=== PATIENT | female | born 1955 | race Caucasian/White ===

== ENCOUNTER 2022-05-02 08:16 | Outpatient (CLI) | payer MEDICARE, BC, SELFPAY | END 2022-05-02 08:17 | disposition home or self-care (01) | LOC: NFLDREF 05-06 09:55 | PROVIDERS: PCP Internal Medicine; Referring Provider Internal Medicine; Visit Provider Internal Medicine | DX: Z00.00 Encounter for general adult medical examination without abnormal findings (principal); R73.03 Prediabetes; M81.0 Age-related osteoporosis without current pathological fracture | CPT/HCPCS: 82306; 82947 ==

== ENCOUNTER 2022-07-06 10:00 | Outpatient (RCR) | payer MEDICARE, BC, SELFPAY | END 2022-08-11 09:15 | disposition home or self-care (01) | PROVIDERS: PCP Internal Medicine; Visit Provider Chiropractor | DX: R53.1 Weakness (principal); Z51.89 Encounter for other specified aftercare | CPT/HCPCS: 97110; 97161 ==

== ENCOUNTER 2023-02-14 17:16 | Emergency (ER) | payer MEDICARE, BC, SELFPAY ==
[2023-02-14] VITALS (19 sets, daily range): BP systolic 129–159; BP diastolic 70–83; PULSE 64–77; RESP 22; TEMP 36.6; O2SAT 89–98; BMI 20.5
--- NOTE | 2023-02-14 17:43 | ED_ITS ---
HPI - General Adult General Time Seen by Provider: 17:43 Date Seen: 02/14/23 Chief complaint: Chest Pain Stated complaint: Severe Stomach and back pain Time Seen by Provider: 02/14/23 17:43 Source: patient Mode of arrival: ambulatory Limitations: no limitations History of Present Illness HPI narrative: Krystle is a very pleasant 67-year-old female with diagnosis of RSV earlier today who comes to the emergency room with a sudden onset of epigastric discomfort at approximately 1600 hours. Patient notes that it is severe and radiates into her back. she denies any nausea or vomiting or change in her bowel movements. Robitussin with codeine for her cough earlier today. She notes that she has had pain in the past like this and underwent a treadmill stress test 1 year ago that was normal. She has had a history of a cholecystectomy. She thought that this pain reminded her of gallbladder pain. Position changes do not improved discomfort. Related Data Home Medications Medication Instructions Recorded Confirmed Hertel 2 cap PO DAILY 05/05/22 02/14/23 Previous Rx's Medication Instructions Recorded alendronate 70 mg tablet 70 mg PO QWEEK #12 tabs 05/05/22 albuterol sulfate 90 mcg/actuation 2 puff inhalation Q6H PRN 02/14/23 aerosol inhaler (ProAir HFA) shortness of breath or wheezing #6.7 grams codeine 10 mg-guaifenesin 100 mg/5 10 ml PO Q4H PRN cough #237 mL 02/14/23 mL oral liquid (Guaifenesin AC) Allergies Allergy/AdvReac Type Severity Reaction Status Date / Time bupropion AdvReac Severe Seizure Verified 02/14/23 08:15 metronidazole AdvReac Intermediate Vomiting Verified 02/14/23 08:15 tetracycline AdvReac Intermediate Vomiting Verified 02/14/23 08:15 Review of Systems Status of ROS: Reports: 10 or more systems reviewed and unremarkable except as noted in History and below PFSH [facility] Medical History History of diverticulitis ?Z87.19 - Personal history of other diseases of the digestive system (ICD-10) Surgical History History of oophorectomy History of bilateral salpingectomy ?Z90.79 - Acquired absence of other genital organ(s) (ICD-10) History of varicose vein ligation and stripping ?Z98.890 - Other specified postprocedural states (ICD-10) History of dilation and curettage ?Z98.890 - Other specified postprocedural states (ICD-10) History of cholecystectomy (04/2015) ?Z90.49 - Acquired absence of other specified parts of digestive tract (ICD- 10) History of section ?Z98.891 - History of uterine scar from previous surgery (ICD-10) Social History Smoking Status: Former smoker Do you use any of these nicotine containing products: None Second hand tobacco smoke exposure: No Non-prescribed substance use: denies use Little interest or pleasure in doing things: not at all Feeling down, depressed, or hopeless: not at all service: No Exam Narrative: Exam Narrative: Patient is alert and oriented. She does appear to be in moderate distress. External ears eyes nose clear. Heart with regular rate and rhythm and lungs are clear. Exquisite pain with palpation in the epigastrium. No CVA tenderness with percussion. I do not palpate pulsating mass in the abdomen and pedal pulses are symmetrical. No unusual calf tenderness or edema noted. Const: Vital Signs, click to edit/add: Vital Signs - 24 hr 02/14/23 17:35 02/14/23 17:41 02/14/23 17:42 Temperature 97.9 F Pulse Rate 69 Pulse Rate [Pulse Oximeter] 76 Respiratory Rate 22 Blood Pressure 141/83 H Blood Pressure [Ri ght Upper Arm] 141/83 H Pulse Oximetry 98 98 Oxygen Delivery Me thod Room Air 02/14/23 17:43 02/14/23 17:45 02/14/23 18:00 Temperature Pulse Rate 77 69 73 Pulse Rate [Pulse Oximeter] Respiratory Rate Blood Pressure 159/71 H Blood Pressure [Ri ght Upper Arm] Pulse Oximetry 98 97 97 Oxygen Delivery Me thod 02/14/23 18:16 02/14/23 18:30 02/14/23 18:32 Temperature Pulse Rate 76 76 70 Pulse Rate [Pulse Oximeter] Respiratory Rate Blood Pressure 131/81 Blood Pressure [Ri ght Upper Arm] Pulse Oximetry 92 93 89 Oxygen Delivery Me thod 02/14/23 18:33 02/14/23 19:00 02/14/23 19:02 Temperature Pulse Rate 74 68 68 Pulse Rate [Pulse Oximeter] Respiratory Rate Blood Pressure 129/70 Blood Pressure [Ri ght Upper Arm] Pulse Oximetry 90 90 95 Oxygen Delivery Me thod Room Air 02/14/23 19:30 02/14/23 19:35 02/14/23 20:00 Temperature Pulse Rate 71 69 65 Pulse Rate [Pulse Oximeter] Respiratory Rate Blood Pressure Blood Pressure [Ri ght Upper Arm] Pulse Oximetry 97 94 91 Oxygen Delivery Me thod 02/14/23 20:04 02/14/23 20:30 02/14/23 20:35 Temperature Pulse Rate 65 71 75 Pulse Rate [Pulse Oximeter] Respiratory Rate Blood Pressure Blood Pressure [Ri ght Upper Arm] Pulse Oximetry 91 97 94 Oxygen Delivery Me thod 02/14/23 21:00 Temperature Pulse Rate 64 Pulse Rate [Pulse Oximeter] Respiratory Rate Blood Pressure Blood Pressure [Ri ght Upper Arm] Pulse Oximetry 92 Oxygen Delivery Me thod Documenting provider has reviewed patient's vital signs: yes Course Course ED Course: At this time differential diagnosis includes but is not limited to aortic dissection, pancreatitis, internal hernia, small-bowel obstruction, acute coronary event. Will place IV and give 1 L of normal saline, Zofran 4 mg, morphine 4 mg. Will proceed immediately with chest abdomen and pelvic CT. Will obtain labs to include CBC, comprehensive panel, lactate, lipase, CRP and urinalysis. Reevaluation(s) Reevaluation #1: Patient notes that her pain is down to a 1/10 at this time after morphine. Vital signs are appropriate. Back from CT and awaiting results. Troponin negative and EKG reassuring. Reevaluation #2: Patient continues to feel much better than her arrival. Vital Signs Vital signs: Initial Vital Signs Blood Pressure 141/83 H 02/14/23 17:35 Blood Pressure Mean 102 02/14/23 17:35 Vital Signs Blood Pressure 141/83 H 02/14/23 17:35 Temperature 97.9 F 02/14/23 17:41 Pulse Rate 64 02/14/23 21:00 Respiratory Rate 22 02/14/23 17:41 Blood Pressure 129/70 02/14/23 19:02 Pulse Oximetry 92 02/14/23 21:00 Oxygen Delivery Method Room Air 02/14/23 18:33 Medications Administered Medications: Discontinued Medications Generic Name Dose Route Start Last Admin Trade Name Slhomo PRN Reason Stop Dose Admin Sodium Chloride 1,000 mls @ 1,000 mls/hr 02/14/23 17:51 02/14/23 19:42 0.9 % Sodium Chloride 1000 Ml IV 02/14/23 18:50 Infused .Q1H ROLAND Infusion Morphine Sulfate 4 mg 02/14/23 17:49 02/14/23 18:00 Morphine 4 Mg/Ml Inj IVP 02/14/23 17:50 4 mg ONCE ONE Administration Omeprazole 40 mg 02/14/23 21:07 02/14/23 21:18 Omeprazole [address] PO 02/14/23 21:08 40 mg ONCE ONE Administration Ondansetron HCl 4 mg 02/14/23 17:49 02/14/23 18:00 Ondansetron 2 Mg/Ml Inj IVP 02/14/23 17:50 4 mg ONCE ONE Administration Medical Decision Making [facility] Narrative Medical decision making narrative: 1. Abdominal pain-no evidence of emergent pathology such as an aortic dissection, bowel obstruction or perforated viscus noted on CT. Laboratory values are also reassuring with a white count that is normal. CRP was elevated but I think likely secondary to RSV infection. At this time patient could be experiencing some abdominal colic or perhaps some gastritis. She is a former smoker and does not smoke currently. Alcohol use is occasionally on weekends. I think we will try omeprazole 40 mg daily 1st 2 weeks and then switch to 20 mg daily for 3 months. Patient is not to use alcohol during this time. Recommend increasing foods containing a calcium and magnesium while on omeprazole. Patient should return to the emergency room for worsening symptoms. EKG was reassuring and troponin negative x2. Further she has had previous stress test which was negative. 2. RSV-O2 sats reassuring and no evidence of pneumonia noted on CT. Patient notes that she has had a few mornings where she has woken up and had difficulty breathing. Will provide her with a albuterol inhaler to use as needed. Return to the emergency room for difficulty breathing and worsening symptoms. 3. Disposition-home with . Rest, push fluids, return as needed. Medical Records Medical records reviewed: Yes I reviewed the patient's medical records Lab Data Lab results reviewed: Yes I reviewed the patient's lab results Labs: Lab Results 02/14/23 02/14/23 02/14/23 Range/Units 17:40 17:52 19:25 WBC 5.61 (4.50-11.00) K/uL RBC 4.49 (4.00-5.20) m/uL Hgb 13.8 (12.0-16.0) gm/dL Hct 41.2 (33.0-51.0) % MCV 92 (80-100) fL MCH 31 (26-34) pg MCHC 34 (32-36) gm/dL RDW Coeff of Miranda 12.6 (11.5-15.5) % Plt Count 300 (140-440) K/uL Neut % (Auto) 52.5 (42.0-72.0) % Lymph % (Auto) 37.3 (20-44) % [place] % (Auto) 8.2 (0.0-11.0) % Eos % (Auto) 1.6 (0.0-7.0) % Baso % (Auto) 0.2 (0.0-3.0) % Neut # (Auto) 2.95 (1.7-7.0) K/uL Lymph # (Auto) 2.09 (0.90-2.90) K/uL [place] # (Auto) 0.50 (0.00-0.90) K/UL Eos # (Auto) 0.09 (0.00-0.50) K/uL Baso # (Auto) 0.01 (0.00-0.30) K/uL Abs Immat Gran (auto) 0.01 (0.00-0.30) K/uL Imm/Tot Granulo (auto) 0.2 % Sodium 132 L (135-149) mmol/L Potassium 3.5 L (3.6-5.1) mmol/L Chloride 101 (96-114) mmol/L Carbon Dioxide 23 (20-32) mmol/L Anion Gap 8 (7-15) mEq/L BUN 14 (7-30) mg/dL Creatinine 0.7 (0.5-1.5) mg/dL Estimated Creat Clear 47.42 Estimated GFR 94 ml/min Glucose 143 H (60-115) mg/dL Lactate 1.4 (0.5-1.9) mmol/L Calcium 9.0 (8.4-10.6) mg/dL Total Bilirubin 0.5 (0.1-1.5) mg/dL AST 43 H (12-35) U/L ALT 21 (4-35) U/L Alkaline Phosphatase 75 (40-150) U/L C-Reactive Protein 3.2 H (0.5-1.0) mg/dL Total Protein 7.1 (6.0-8.3) g/dL Albumin 4.4 (3.3-5.0) g/dL Lipase 131 (23-300) U/L Urine Color Yellow (Yellow) Urine Appearance Clear (Clear) Urine pH 5.5 (5.0-8.5) Ur Specific [place] <= 1.005 (1.000-1.030) Urine Protein Negative (Negative) Urine Glucose (UA) Negative (Negative) Urine Ketones Trace A (Negative) Urine Blood Negative (Negative) Urine Nitrite Negative (Negative) Urine Bilirubin Negative (Negative) Urine Urobilinogen 0.2 (0.2-1.0) Ur Leukocyte Esterase Negative (Negative) Urine RBC 0-2 (0-2) Urine WBC 0-2 (0-5) Ur Squamous Epith Cells None (None-Few) Urine Bacteria None (None) POC Troponin I 0.00 L (0.01-0.04) ng/ml 02/14/23 Range/Units 20:22 WBC (4.50-11.00) K/uL RBC (4.00-5.20) m/uL Hgb (12.0-16.0) gm/dL Hct (33.0-51.0) % MCV (80-100) fL MCH (26-34) pg MCHC (32-36) gm/dL RDW Coeff of Miranda (11.5-15.5) % Plt Count (140-440) K/uL Neut % (Auto) (42.0-72.0) % Lymph % (Auto) (20-44) % [place] % (Auto) (0.0-11.0) % Eos % (Auto) (0.0-7.0) % Baso % (Auto) (0.0-3.0) % Neut # (Auto) (1.7-7.0) K/uL Lymph # (Auto) (0.90-2.90) K/uL [place] # (Auto) (0.00-0.90) K/UL Eos # (Auto) (0.00-0.50) K/uL Baso # (Auto) (0.00-0.30) K/uL Abs Immat Gran (auto) (0.00-0.30) K/uL Imm/Tot Granulo (auto) % Sodium (135-149) mmol/L Potassium (3.6-5.1) mmol/L Chloride (96-114) mmol/L Carbon Dioxide (20-32) mmol/L Anion Gap (7-15) mEq/L BUN (7-30) mg/dL Creatinine (0.5-1.5) mg/dL Estimated Creat Clear Estimated GFR ml/min Glucose (60-115) mg/dL Lactate (0.5-1.9) mmol/L Calcium (8.4-10.6) mg/dL Total Bilirubin (0.1-1.5) mg/dL AST (12-35) U/L ALT (4-35) U/L Alkaline Phosphatase (40-150) U/L C-Reactive Protein (0.5-1.0) mg/dL Total Protein (6.0-8.3) g/dL Albumin (3.3-5.0) g/dL Lipase (23-300) U/L Urine Color (Yellow) Urine Appearance (Clear) Urine pH (5.0-8.5) Ur Specific [place] (1.000-1.030) Urine Protein (Negative) Urine Glucose (UA) (Negative) Urine Ketones (Negative) Urine Blood (Negative) Urine Nitrite (Negative) Urine Bilirubin (Negative) Urine Urobilinogen (0.2-1.0) Ur Leukocyte Esterase (Negative) Urine RBC (0-2) Urine WBC (0-5) Ur Squamous Epith Cells (None-Few) Urine Bacteria (None) POC Troponin I 0.00 L (0.01-0.04) ng/ml Imaging Data CT Chest/Ab/Pelvis: Attestation: I have reviewed the pertinent imaging results. Radiologist's impression: Cardiovascular structures: Heart size is normal. Thoracic aorta and main pulmonary artery are normal in caliber. Mediastinum and soni: No mass or adenopathy. Lungs and pleura: Lungs and pleural spaces are clear. No suspicious nodules, infiltrates, or effusions. Chest wall and axilla: No mass or adenopathy. Bones: No suspicious bone lesions. Unremarkable for age. ABDOMEN AND PELVIS: Liver: Unremarkable. Gallbladder and bile ducts: Gallbladder is absent. Mild intra and extrahepatic biliary ductal dilatation. Pancreas: Unremarkable. Spleen: Unremarkable. Adrenal glands: Thickening of the bilateral adrenal glands. Kidneys: Unremarkable. GI tract: Diffuse colonic diverticuli. No evidence of diverticulitis. Vascular structures: Unremarkable. Lymph nodes: Unremarkable. Miscellaneous: Unremarkable. No free air or significant free fluid. Pelvic Organs: Unremarkable. Bones: No suspicious bone lesions. Unremarkable for age. IMPRESSION: No acute cardiopulmonary process identified. No acute intra-abdominal process identified. ECG Data Attestation: I personally reviewed and interpreted this ECG as follows: Interpretation: by my read EKG shows sinus rhythm at a rate of 75. Wondering baseline but I do not note any acute ST or T-wave changes. QT and DC intervals within normal limits. Discharge Plan Discharge Clinical Impression: Respiratory syncytial virus (RSV) infection, Abdominal pain, epigastric Patient Disposition: Home, Self-Care Condition: Improved Additional Instructions: At this time your CT scan is reassuring. What you're experiencing may be related to gastritis or an inflammation of the stomach lining. Your 1st dose of omeprazole was given tonight. I would like you to continue omeprazole 40 mg or 2 tablets every evening for 2 weeks. Thereafter, you may decrease to 1 tablet every evening for the next 3 months. During this time make sure you are getting extra calcium and magnesium in the form of green vegetables. Return to the emergency room for worsening symptoms either with your pain or breathing. An inhaler is available for you through our AF83 machine. Prescriptions: New albuterol sulfate [ProAir HFA] 90 mcg/actuation HFA aerosol inhaler 2 puff inhalation Q6H PRN (Reason: shortness of breath or wheezing) Qty: 6.7 0RF No Action codeine-guaifenesin [Guaifenesin AC] 10-100 mg/5 mL liquid 10 ml PO Q4H PRN (Reason: cough) Qty: 237 1RF Hertel 2 cap PO DAILY alendronate 70 mg tablet 70 mg PO QWEEK Qty: 12 3RF Follow Up/Referrals: Salome Moreland MD [Primary Care Provider] - Stand Alone Forms: [employer] Info Instructions
--- NOTE | 2023-02-14 17:49 | CRLHL7_ITS ---
For Patients: As a result of the Century Cures Act, medical imaging exams and procedure reports are released immediately into your electronic medical record. You may view this report before your referring provider. If you have questions, please contact your health care provider. INDICATION: sudden onset of abdominal pain, radiation to back TECHNIQUE: CT chest, abdomen and pelvis acquired with 58 milliliters of Isovue 370 IV contrast. COMPARISON: None. FINDINGS: CHEST: Cardiovascular structures: Heart size is normal. Thoracic aorta and main pulmonary artery are normal in caliber. Mediastinum and soni: No mass or adenopathy. Lungs and pleura: Lungs and pleural spaces are clear. No suspicious nodules, infiltrates, or effusions. Chest wall and axilla: No mass or adenopathy. Bones: No suspicious bone lesions. Unremarkable for age. ABDOMEN AND PELVIS: Liver: Unremarkable. Gallbladder and bile ducts: Gallbladder is absent. Mild intra and extrahepatic biliary ductal dilatation. Pancreas: Unremarkable. Spleen: Unremarkable. Adrenal glands: Thickening of the bilateral adrenal glands. Kidneys: Unremarkable. GI tract: Diffuse colonic diverticuli. No evidence of diverticulitis. Vascular structures: Unremarkable. Lymph nodes: Unremarkable. Miscellaneous: Unremarkable. No free air or significant free fluid. Pelvic Organs: Unremarkable. Bones: No suspicious bone lesions. Unremarkable for age. IMPRESSION: No acute cardiopulmonary process identified. No acute intra-abdominal process identified. Please note that all CT scans at this facility use dose modulation, iterative reconstruction, and/or weight-based dosing when appropriate to reduce radiation dose to as low as reasonably achievable. Dictated by Emigdio Sofia MD @ 02/14/2023 7:14:39 PM (Electronically Signed)
[2023-02-14] MEDS: MORPHINE 4 MG/ML INJ IVP (18:00)
[2023-02-14] MEDS: ONDANSETRON 2 MG/ML inj 4 MG IVP (18:00)
[2023-02-14 18:10] LABS: Lactate* 1.4 mmol/L (0.5-1.9)
[2023-02-14 18:15] LABS: Basophils Absolute Auto 0.01 K/uL (0.00-0.30); Basophils Percent Auto 0.2 % (0.0-3.0); Eosinophils Absolute Auto 0.09 K/uL (0.00-0.50); Eosinophils Percent Auto 1.6 % (0.0-7.0); Hematocrit 41.2 % (33.0-51.0); Hemoglobin* 13.8 gm/dL (12.0-16.0); Immature Granulocytes Abs Auto 0.01 K/uL (0.00-0.30); Immature Granulocytes Pct Auto 0.2 %; Lymphocytes Absolute Auto 2.09 K/uL (0.90-2.90); Lymphocytes Percent Auto 37.3 % (20-44); Mean Corpuscular HGB Conc 34 gm/dL (32-36); Mean Corpuscular Hemoglobin 31 pg (26-34); Mean Corpuscular Volume 92 fL (80-100); Monocytes Percent Auto 8.2 % (0.0-11.0); Neutrophils Absolute Auto 2.95 K/uL (1.7-7.0); Neutrophils Percent Auto 52.5 % (42.0-72.0); Platelet Count* 300 K/uL (140-440); RDW Coefficient of Variation % 12.6 % (11.5-15.5); Red Blood Count 4.49 m/uL (4.00-5.20); White Blood Count* 5.61 K/uL (4.50-11.00)
[2023-02-14] MEDS: 0.9 % SODIUM CHLORIDE 1000 ml 1,000 ML IV (18:21)
[2023-02-14 18:25] LABS: Slide Review Reflex No
[2023-02-14 18:27] LABS: Chloride* 101 mmol/L (96-114)
[2023-02-14 18:28] LABS: Albumin* 4.4 g/dL (3.3-5.0); Sodium* 132 mmol/L (135-149)
[2023-02-14 18:29] LABS: Potassium* 3.5 mmol/L (3.6-5.1)
[2023-02-14 18:31] LABS: Alkaline Phosphatase* 75 U/L (40-150); Anion Gap 8 mEq/L (7-15); Aspartate Amino Transferase* 43 U/L (12-35); Bilirubin Total* 0.5 mg/dL (0.1-1.5); Carbon Dioxide* 23 mmol/L (20-32); Creatinine* 0.7 mg/dL (0.5-1.5); Est. Creatinine Clearance* 47.42; Estimated Glomerular Filt Rate 94 ml/min; Lipase* 131 U/L (23-300); Total Protein* 7.1 g/dL (6.0-8.3)
[2023-02-14 18:32] LABS: Alanine Aminotransferase* 21 U/L (4-35); Blood Urea Nitrogen* 14 mg/dL (7-30); Glucose* 143 mg/dL (60-115)
[2023-02-14 18:34] LABS: C Reactive Protein* 3.2 mg/dL (0.5-1.0)
[2023-02-14 19:37] LABS: Appearance Urine Clear (Clear); Bilirubin Urine Negative (Negative); Blood Urine Negative (Negative); Color Urine Yellow (Yellow); Glucose Urine Negative (Negative); Ketones Urine Trace (Negative); Leukocyte Esterase Urine Negative (Negative); Nitrite Urine Negative (Negative); Protein Urine Negative (Negative); Specific Gravity Urine <= 1.005 (1.000-1.030); Urobilinogen Urine 0.2 (0.2-1.0); pH Urine 5.5 (5.0-8.5)
[2023-02-14 19:53] LABS: RBC Urine 0-2 (0-2); WBC Urine 0-2 (0-5)
[2023-02-14] MEDS: OMEPRAZOLE 20 MG CAPSULE DR 40 MG PO (21:18)
== END 2023-02-14 21:22 | disposition home or self-care (01) ==
PROVIDERS: Emergency Provider Family Medicine; PCP Internal Medicine
DX: R10.13 Epigastric pain (principal); B97.4 Respiratory syncytial virus as the cause of diseases classified elsewhere
CPT/HCPCS: 36415; 71260; 74177; 80053; 81001; 83605; 83690; 84484; 85025; 86140; 93005; 95992; 96374; 96375; 99284; 99285; A9270; J2270; J2405; J7030; Q9967

== ENCOUNTER 2023-03-23 06:56 | Outpatient (CLI) | payer MEDICARE, BC, SELFPAY ==
--- NOTE | 2023-03-23 07:15 | MR_ITS ---
[facility] [address] [facility] [address] Phone:?[phone] Fax:?[phone] Referring Physician Information: Percy Brown M.D. [address] [facility] [address] Phone:?[phone] Fax:?[phone] Patient:Hailee Bennett D.O.B:?1955 Sex:?Female Phone:?[phone] [facility] MRN:?[id number] Exam Date:?03/23/2023 EXAM: MRI of the RIGHT SHOULDER, without contrast CLINICAL INFORMATION: Female, 67 years old, with right shoulder pain. INDICATION: Evaluate for rotator cuff tear. PRIOR SURGERY: None reported. PLAIN FILMS: None available. COMPARISONS: No prior MRIs available. TECHNICAL INFORMATION: Using a 1.5T MR scanner and a localizing surface coil: coronal obliques: PD, T2, STIR sagittal obliques: PD, T2 axials: PD, T2 SEDATION: None CONTRAST: None FINDINGS: Bones: Proximal humerus: No fracture or marrow edema/pathology. No humeral Hill-Sachs or reverse Hill-Sachs lesion/impaction or contusion. Glenoid: No fracture or marrow edema/pathology. No osseous Bankart lesion. Rotator cuff and muscles/tendons: Supraspinatus: Moderate-marked supraspinatus tendinopathy with partial-thickness articular surface tearing over an area measuring 1.2 cm mediolateral by 1.6 cm anteroposterior and involving approximately two thirds of the tendon thickness (coronal STIR series 4 image 13 and sagittal T2 series 8 image 6). Infraspinatus: Mild infraspinatus tendinopathy, without tendon tear or muscle atrophy. Teres minor: No tendinopathy, tear or atrophy. Subscapularis: No tendinopathy, tear or atrophy. Deltoid: No strain or atrophy. Coracoacromial arch: Acromion morphology: The acromion has type II morphology. No discrete subacromial osseous spur or os acromiale. Acromiohumeral space: The acromiohumeral space measures 5 mm at its narrowest point (osseous distance). Coracohumeral space: The coracohumeral space is within normal limits. Acromioclavicular joint: Joint: Moderate AC joint arthropathy with 4 mm of inferior osteophytosis, which effaces the underlying supraspinatus (coronal PD series 5 image 14). Ligaments: Coracoclavicular ligaments are intact. Bursae: Subacromial-subdeltoid: Moderate-marked subacromial-subdeltoid bursitis. Subcoracoid: No convincing subcoracoid bursal thickening/bursitis. Biceps tendon: The long head of the biceps tendon is present within the bicipital groove. The intra-articular and extra-articular segments are intact without tendinosis, tenosynovitis, or displacement. Glenohumeral joint: Effusion/cyst: No significant glenohumeral joint effusion. Articular cartilage: Humeral head: No osteochondral abnormalities. Glenoid: No osteochondral abnormalities. Loose bodies: No discrete intra-articular body within the joint. Labrum:?No discrete labral tear or paralabral cyst identified on this non- arthrographic study. Inferior glenohumeral ligament/axillary pouch:?Mild-moderate thickening of inferior capsuloligamentous structures (coronal PD series 5 images 11-16). Additionally, there is soft tissue thickening throughout the rotator interval (sagittal PD series 7 images 613). IMPRESSION: 1. Moderate-marked supraspinatus tendinopathy with a 1.2 x 1.6 cm area of intermediate grade partial-thickness articular surface tearing. There is also mild infraspinatus tendinopathy, without tear. 2. Mild narrowing of the acromiohumeral space with moderate-marked subacromial- subdeltoid bursitis. Additionally, inferior osteophytosis from moderate AC joint arthropathy effaces the underlying supraspinatus. 3. Findings in keeping with any clinical symptoms of adhesive capsulitis. 4. No tendinopathy, displacement, or tear of the biceps long head tendon. 5. No labral tear or paralabral cyst. 6. No full-thickness chondral defect or evidence of glenohumeral joint osteoarthritis. BC Electronically signed on 03/23/2023 11:55:00 AM by Ambrose العراقي M.D.
== END 2023-03-23 06:57 | disposition home or self-care (01) ==
LOC: MRI 06:57
PROVIDERS: PCP Internal Medicine; Visit Provider Orthopaedic Surgery Sports Medicine
DX: M25.511 Pain in right shoulder (principal); M75.101 Unspecified rotator cuff tear or rupture of right shoulder, not specified as traumatic; M75.51 Bursitis of right shoulder; M75.01 Adhesive capsulitis of right shoulder
CPT/HCPCS: 73221

== ENCOUNTER 2023-03-30 07:14 | Outpatient (RCR) | payer MEDICARE, BC, SELFPAY ==
--- NOTE | 2023-03-30 09:24 | PT.OPEX ---
PT [place] Outpatient Eval PT [facility] Outpatient Eval Start: 03/30/23 07:19 Freq: Status: Active Protocol: Document 03/30/23 07:20 ESTHER (Rec: 03/30/23 08:11 CLSteve [id number]) E-signed By Faye Turner PT Physical Therapy Outpatient Evaluation Insurance Information Recert Due Date 06/24/23 Insurance Name Medicare B Medical Diagnosis Rt Rotator Cuff Tear (partial tear of supraspinatus) Rt Tendinopathy of infraspinatus (no tear) Treating Diagnosis Impaired use of rt UE due to pain Reduced AROM and Strength Rt UE Poor sleeping due to pain Reduced ease of ADL's Referring MD Dr Percy Brown Subjective Subjective Demetrice reports having Rt shoulder pain for about 4 months. No accident or incident, possibly over use and over time. 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 Cannot lift arm overhead - cannot fully participate in yoga. Able to do most ADL's and self cares/house chores, but over time (about 5 min of constant use) it starts to hurt. Pain at top/front/back of shoulder and around mid arm. Sleeping is hard to get comfortable. She is Rt dominant. Having some neck pain (lateral neck). Constant use, repetitive use and attempting overhead use increases pain. 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 She denies any direct trauma/ accident or injury which may have caused this damage. Symptoms have been present for 4 months. She presents with slight shoulder elevation and protraction, guarded posturing . She is Rt UE dominant. CX AROM is slightly reduced 80% of normal in naina ROT. Pain free. Lt UE AROM is WNL, MMT 5 /5 all executed pain free. Rt shoulder AROM FF 0-129 deg. ABD 0-80 deg. ER 0-48, IR 0-58 . EXT 0-40. PROM is WFL ( supine) MMT grossly 3/5. Functional reach ER caused pain/unable to perform. IR to L3. Posturaly she looks good, but with testing started to assume guarded/injured wing positioning. She will benefit from continued skilled physical therapy to provide STM/MFR/TPR and progressive stretch/strength HEP Plan of Care Rehabilitation Potential Good Physical Therapy Goals In 8-10 visits, Demetrice will be able to report the ability to: 1. IND in proper execution of entire HEP with emphasis on reps, HOLD and alignment. 2. Improved CX AROM by 10 deg naina 3. Improved Rt shoulder AROM by 50% 4. Absence of injured wing/ guarded posturing 5. Sleep up to 4 hours without awakening due to Rt shoulder pain 6. Absence of UT pain and N/T into hand 7. Increased use of Rt UE to 30 min prior to increased discomfort greater than 3/10 Her LTG: pain free overhead arm use, light to moderate lifting without increased pain (25#) return to yoga pain free. She has been informed she will require surgery, but she can wait until she is ready, no time frame Coordination/Communication With Referral Source Treatment Plan/Direct Interventions Ice/Cold/Vasopneumatic,Joint Mobilization,Manual Therapy, Neuromuscular Re-ed,Self-Care/ Home Management,Therapeutic Activities,Therapeutic Exercises,Ultrasound Frequency/Duration 1X/Wk for 10 visits Patient Will Be Discharged From Therapy Completion of LTG(s) Evaluation Billing Untimed Code Treatment Minutes 28 Complexity Moderate Certification Information Initial Certification Date 03/30/23 Ending Certification Date 06/24/23 Provider Signature Shows Agreement With POC & Medical Necessity Physician Signature & Date Requested Please Sign/Date Here Physician Comment/Change : Physician NPI Number #
== END 2023-07-28 23:59 | disposition home or self-care (01) ==
PROVIDERS: PCP Internal Medicine; Visit Provider Orthopaedic Surgery Sports Medicine
DX: M19.011 Primary osteoarthritis, right shoulder (principal); M75.101 Unspecified rotator cuff tear or rupture of right shoulder, not specified as traumatic; M67.813 Other specified disorders of tendon, right shoulder; G47.9 Sleep disorder, unspecified; Z74.09 Other reduced mobility; Z51.89 Encounter for other specified aftercare
CPT/HCPCS: 97110; 97162

== ENCOUNTER 2023-05-16 08:55 | Outpatient (CLI) | payer MEDICARE, BC, SELFPAY | END 2023-05-16 08:56 | disposition home or self-care (01) | PROVIDERS: PCP Internal Medicine; Visit Provider Internal Medicine | DX: Z01.818 Encounter for other preprocedural examination (principal); R73.03 Prediabetes; E78.5 Hyperlipidemia, unspecified; M81.0 Age-related osteoporosis without current pathological fracture | CPT/HCPCS: 80053; 80061; 82306 ==

== ENCOUNTER 2023-06-05 07:30 | Day surgery (SDC) | payer MEDICARE, BC, SELFPAY ==
[2023-06-05] VITALS (15 sets, daily range): BP systolic 98–138; BP diastolic 64–105; PULSE 54–76; RESP 16–24; TEMP 36–36.4; O2SAT 96–100; BMI 20.7
[2023-06-05] MEDS: LACTATED RINGERS 1000 ML 1,000 ML 100 ML IV ×2 (07:30→10:56)
[2023-06-05] MEDS: SODIUM CHLORIDE 0.9 % (FLUSH) 10 ML SYRINGE IVF (07:53)
--- NOTE | 2023-06-05 08:48 | W.PM.H&PU ---
History & Physical Update History & Physical Update H&P Reviewed and patient assessed: No changes noted
[2023-06-05] MEDS: MIDAZOLAM HCL 1 MG/ML inj IVP (09:13)
[2023-06-05] MEDS: fentaNYL 100 MCG/2 ML inj IVP (09:13)
--- NOTE | 2023-06-05 09:38 | W.PM.NB ---
Nerve Block Nerve Block Time Seen by Provider: 09:16 Date Seen: 06/05/23 Type of block requested by surgeon for post-operative analgesia: supraclavicular Side: right Time out performed: Yes Verification of patient name: Yes Verification of date of : Yes Site marking: site marked Name of person performing procedure: Gerry Continuous monitoring Was continuous monitoring of O2 sat, B/P, cardiac rehabilitation program director, recorded every 15 minutes?: Yes Procedure Checklist: sterile prep, needles and gloves Ultrasound guided. Images saved: Yes Medications given in 5ml increments after negative aspiration: Ropivicaine %: 0.5 mL: 20 Needle gauge: 22 Decadron (mg): 10 Precedex (mcg): 25 Patient tolerated procedure well: Yes Block Charges Block Charge (with Pro Fee): Brachial Plexus Use of Ultrasound Machine for Block: Yes- US Guidance/pain block
--- NOTE | 2023-06-05 09:38 | W.ANESCHARGE ---
Anesthesia Charges Start Date/Time Anesthesia Start Date: 06/05/23 Anesthesia Start Time: 10:13 Stop Date/Time Anesthesia Stop Date: 06/05/23 Anesthesia Stop Time: 12:33
--- NOTE | 2023-06-05 09:59 | SUR.PREOP ---
TIME?OUT:?911 PT/Pratibha Beal RN/Dr. Gerry MDA?VERIFICATION?OF?SURGICAL?SITE right shoulder,?PROCEDURE,?AND?CONSENT OBTAINED?PRIOR?TO?INVASIVE?PROCEDURE.
[2023-06-05] MEDS: CEFAZOLIN 2 GM in 0.9 % SODIUM CHLORIDE Mini-bag 100 ML IVPB (10:37)
[2023-06-05] MEDS: EPINEPHrine 1 MG in SODIUM CHLORIDE IRRIG SOLUTION 3,000 ML 9003 MG IRRIGATION ×4 (11:00→12:01)
[2023-06-05] MEDS: EPINEPHrine 1 MG in SODIUM CHLORIDE IRRIG SOLUTION 3,000 ML 4500 MG IRRIGATION (12:10)
--- NOTE | 2023-06-05 12:15 | P.ORPRC_ITS ---
Procedure Note Date of procedure: 06/05/23 Procedure: PREOPERATIVE DIAGNOSES: 1. Right shoulder rotator cuff tear. 2. Right shoulder AC degenerative joint disease, primary, moderate-severe 3. Right shoulder subacromial impingement syndrome. POSTOPERATIVE DIAGNOSES: 1. Right shoulder rotator cuff tear. 2. Right shoulder AC degenerative joint disease, primary, moderate-severe 3. Right shoulder subacromial impingement syndrome. NAME OF OPERATION: 1. Right shoulder arthroscopic rotator cuff repair - full-thickness supraspinatus anterior margin with delamination 2. Right shoulder arthroscopic distal clavicle excision 3. Right shoulder arthroscopic bursectomy, subacromial decompression/partial acromioplasty. SURGEON: Percy Brown MD LIFE SUPPORT TECHNICIAN: Manuelito Moreno PA-C. Of note, a skilled healthcare administrative assistant was critical for this case to aide in patient positioning, suture manipulation, arm positioning, instrument positioning, and closure. ANESTHESIA: General plus preoperative supraclavicular block. EBL: 25 mL IMPLANTS: Arthrex 4.75 mm BioComposite SwiveLock suture anchor (x1); COMPLICATIONS: None evident INDICATIONS: The patient is a pleasant, 68-year-old female who has experienced right shoulder pain that has been increasing in recent time. Physical exam and imaging were consistent with a rotator cuff tear. Given their findings, as well as the weakness and pain, and inadequate response to nonoperative management, recommendation was made for surgery. FINDINGS: Exam under anesthesia revealed stable shoulder with excellent range of motion. The diagnostic arthroscopy revealed healthy chondral surfaces of the glenohumeral joint. The Subscapularis tendon was intact and with a healthy attachment. The long head of the biceps tendon was intact. The superior rotator cuff tendon was found to be torn full-thickness through the anterior margin with minimal greater tuberosity involvement. The insertion was overall relatively good except for slight lifting off similar to a PASTA repair scenario. In addition, there was some delamination of the supraspinatus that had fallen both posterior and medial, but also a mid substance tendon tear worthy of marginal convergence. The labrum was overall quite healthy. No loose bodies were identified within the pouch or subscapularis recess. PROCEDURE: Following a thorough discussion of risks, benefits, and alternatives, consent was obtained and the right shoulder was marked. The patient was brought to the operating room and placed supine on the operating table. Induction of anesthesia was completed after preoperative supraclavicular block was administered in preop holding. Appropriate time out was performed identifying proper patient, site, and procedure. 2 g IV Ancef was administered within 1 hour of incision preoperatively. The right upper extremity was prepped and draped in the appropriate sterile fashion using ChloraPrep prep. This was after the patient was positioned in the beach chair with their head in neutral alignment and all bony prominences well padded. The shoulder was insufflated with 20mL of normal saline via an 18g spinal needle from a posterior approach. An 11 blade skin incision allowed a blunt trochar to be inserted and diagnostic arthroscopy to be performed with the findings as noted above. An anterior portal was established with an outside in technique. This allowed the probe to be inserted and confirm the diagnostic arthroscopic findings. The shaver was then inserted and allowed debridement of the greater tuberosity/the deep surface of the rotator cuff tear. Following this, the upper border subscapularis was probed and found to be stable. Thereafter, the subacromial space was entered. Here, a complete bursectomy and partial acromioplasty/subacromial decompression was performed with a combination of radiofrequency ablator, the shaver, and a 5.5 mm bur. Additionally, distal clavicle excision was performed with the bur. 8 mm of distal clavicle was resected based on the with of our bur. Further inspection of the supraspinatus and infraspinatus rotator cuff was performed. This identified the tear as noted above. The margins of the tear were debrided, and the greater tuberosity was debrided with a combination of the apollo cautery, shaver, and bur on reverse setting. A single 4.75 mm BioComposite SwiveLock suture anchor was utilized at the far anterior medial insertion of the supraspinatus. However, 2 marginal convergence sutures were 1st passed in independent fashion through the split of the supraspinatus along its anterior cable. The 1st was tied but the 2nd waited to be tied until after the anchor was secured. FiberTape sutures were used in a speed fix configuration for that anchor. 1 the eyelet sutures was also utilized to help reapproximate more of the delaminated supraspinatus tissue that had fallen s lightly posterior and medial. The marginal convergence sutures were passed 2 separate throws to capture both the deep and the superficial delaminated portions. The rotator cuff showed excellent reapproximation of the greater tuberosity with good security upon probing. Prior to anchor medical driver removal, the eyelet sutures were tugged on for each anchor and found that the anchor had excellent stability within the bone. The shoulder was placed through range of motion and found to be stable. The rotator cuff was re-probed and found to be stable. Instruments were removed. Excess fluid was drained, closure performed with 4-0 Monocryl and Steri-Strips. Dressings were applied. Sling was applied. The patient was awoken from anesthesia and transferred to the PACU in stable condition. A skilled healthcare administrative assistant was critical for this case to aid in patient positioning, limb positioning, skill to manipulate arthroscopic instruments and camera, suture management, patient safety, and closure. PLAN: 1. Elbow, forearm, wrist and digit range of motion as tolerated. 2. Encouraged ice. 3. Oxycodone for pain as needed. 4. Sling at all times except for ROM and showering. 5. Follow up with PA visit in 1-2 weeks for wound check. Initiate physical therapy following that visit for passive range of motion. Initiate active assisted range of motion at 6 weeks. May do pendulums now.
--- NOTE | 2023-06-05 12:33 | W.ANESCHARGE ---
Anesthesia Charges Start Date/Time Anesthesia Start Date: 06/05/23 Anesthesia Start Time: 10:13 Stop Date/Time Anesthesia Stop Date: 06/05/23 Anesthesia Stop Time: 12:33
--- NOTE | 2023-06-05 13:06 | SUR.PHASEI ---
Patient meets anesthesia criteria to discharge to PACU 2
[2023-06-05] MEDS: IBUPROFEN 200 MG TABLET 400 MG PO (13:38)
== END 2023-06-05 14:23 | disposition home or self-care (01) ==
PROVIDERS: PCP Internal Medicine; Visit Provider Orthopaedic Surgery Sports Medicine
PROC: (CPT 29805; principal; 2023-06-05 09:00)
DX: M75.101 Unspecified rotator cuff tear or rupture of right shoulder, not specified as traumatic (principal); M19.011 Primary osteoarthritis, right shoulder; M75.41 Impingement syndrome of right shoulder; G89.18 Other acute postprocedural pain
CPT/HCPCS: 29827; 29826; 29824; 01630; 64415; 76942; A9270; C1713; J0171; J0690; J1100; J2250; J2371; J2405; J2704; J2710; J2795; J3010; J7120; L3670

== ENCOUNTER 2023-08-28 09:30 | Outpatient (RCR) | payer MEDICARE, BC, SELFPAY | END 2023-12-26 23:59 | disposition home or self-care (01) | PROVIDERS: PCP Internal Medicine; Visit Provider Orthopaedic Surgery Sports Medicine | DX: M19.011 Primary osteoarthritis, right shoulder (principal); M75.41 Impingement syndrome of right shoulder; Z98.890 Other specified postprocedural states; M75.101 Unspecified rotator cuff tear or rupture of right shoulder, not specified as traumatic; M25.511 Pain in right shoulder; Z74.09 Other reduced mobility; R53.1 Weakness; Z51.89 Encounter for other specified aftercare | CPT/HCPCS: 97110; 97162 ==

== ENCOUNTER 2024-05-28 07:14 | Outpatient (CLI) | payer MEDICARE, BC, SELFPAY ==
--- NOTE | 2024-05-28 08:21 | P.ANES_ITS ---
Anesthesia Charges Start Date/Time Anesthesia Start Date: 05/28/24 Anesthesia Start Time: 08:00 Stop Date/Time Anesthesia Stop Date: 05/28/24 Anesthesia Stop Time: 08:20 Summary Extremes of Age - Over 70 or under 1: CASH SHORTAGE INVESTIGATOR Coding CPT Codes CPT Codes: ANES UPR GI NDSC PX NOS - 00168 ([id number]) P2 - PATIENT W/MILD SYST DISEASE, QZ - CASH SHORTAGE INVESTIGATOR SVC W/O FILE KEEPER BY Additional Codes: Summary - Extremes of Age - Over 70 or under 1: CASH SHORTAGE INVESTIGATOR ([id number])
--- NOTE | 2024-05-28 08:21 | W.ANESCHARGE ---
Anesthesia Charges Start Date/Time Anesthesia Start Date: 05/28/24 Anesthesia Start Time: 08:00 Stop Date/Time Anesthesia Stop Date: 05/28/24 Anesthesia Stop Time: 08:20 Summary Extremes of Age - Over 70 or under 1: MOLDER FITTING Coding CPT Codes CPT Codes: ANES UPR GI NDSC PX NOS - 76743 ([id number]) P2 - PATIENT W/MILD SYST DISEASE, QZ - MOLDER FITTING SVC W/O RHEUMATOLOGIST BY Additional Codes: Summary - Extremes of Age - Over 70 or under 1: MOLDER FITTING ([id number])
== END 2024-05-28 07:15 | disposition home or self-care (01) ==
LOC: OP CLINIC 07:14
PROVIDERS: PCP Internal Medicine; Visit Provider Internal Medicine
DX: R10.13 Epigastric pain (principal)
CPT/HCPCS: 00731; 43239; 88305; 99100; J2704; J3490

== ENCOUNTER 2024-10-05 14:24 | Outpatient (CLI) | payer MEDICARE, BC, SELFPAY | END 2024-10-05 14:25 | disposition home or self-care (01) | LOC: NFLDREF 10-10 12:07 | PROVIDERS: PCP Internal Medicine; Referring Provider Internal Medicine | DX: R30.0 Dysuria (principal); N39.0 Urinary tract infection, site not specified; B37.31 Acute candidiasis of vulva and vagina | CPT/HCPCS: 87086 ==